=== PATIENT | male | born 1955 | race Caucasian/White ===

== ENCOUNTER 2021-05-19 12:04 | Emergency (ER) | payer OTHER ==
--- NOTE | 2021-05-19 13:02 | RAD REPORT ---
EXAM DESCRIPTION: RAD - Chest Single View - 05/19/2021 12:56 pm CLINICAL HISTORY: Dizziness COMPARISON: No comparisons FINDINGS: Lines: None. Lungs: No evidence of edema or pneumonia. Pleural: No significant pleural effusions or pneumothorax. Cardiac: The heart size is within normal limits. Bones: No acute fractures. Remote right-sided rib fractures. Other: IMPRESSION: No acute cardiopulmonary disease.
[2021-05-19 13:18] LABS: Absolute Lymphocytes (CBC) 1.7 K/uL (0.7-4.9); Basophils % 0.8 % (0-1.3); Hematocrit 40.3 % (39.6-49.0); Lymphocytes % 36.5 % (15.3-44.8); MPV 8.4 fL (7.6-11.3); RBC Red Blood Cell Count 4.45 M/uL (4.33-5.43)
[2021-05-19 13:20] LABS: Protime INR 1.07
[2021-05-19 13:43] LABS: ALT/SGPT 43 U/L (12-78); AST/SGOT 24 U/L (15-37); Albumin 3.8 g/dL (3.4-5.0); Alkaline Phosphatase 98 U/L (45-117); BUN Blood Urea Nitrogen 23 mg/dL (7-18); Bicarbonate 29 mmol/L (21-32); Bilirubin Direct 0.2 mg/dL (0-0.2); Glucose Level 96 mg/dL (74-106); Magnesium 2.2 mg/dL (1.8-2.4); NT PRO-BNP 94 pg/mL (<125); Sodium Level 138 mmol/L (136-145); Troponin (Emerg Dept Use Only) < 0.02 ng/mL (0.0-0.045)
[2021-05-19] MEDS ORDERED: MECLIZINE HCL 12.5 MG TAB ONE (15:30)
--- NOTE | 2021-05-19 16:52 | RAD REPORT ---
EXAM DESCRIPTION: MRI - Brain W/Wo Cont - 05/19/2021 4:41 pm CLINICAL HISTORY: DIZZINESS COMPARISON: No comparisons TECHNIQUE: Sagittal T1-weighted images were obtained along with PD/heavily T2-weighted and T2-FLAIR images. Axial DWI and ADC mapping sequences were also obtained along with coronal heavily T2-weighted images were obtained. Contrast was administered. FINDINGS: No intracranial hemorrhage, mass or acute infarction. There is no edema or shift of midlin e structures. No extra-axial fluid collections. Signal voids are seen as a normal finding in the lennox r intracranial vessels. Mild chronic small vessel ischemic changes. Minimal circumferential thickening within several ethmoid air cells. IMPRESSION: No acute intracranial abnormality. No abnormal enhancement. Mild chronic small vessel is chemic changes.
--- NOTE | 2021-05-19 17:10 | EDPHYS ---
Physician Documentation [facility] Name: Emre Mario Age: 66 yrs Sex: Male : 1955 Arrival Date: 05/19/2021 Time: 12:09 Bed 16 Private MD: ED Physician Ramakrishna Morales HPI: 05/19 18:22 This 66 yrs old Male presents to ER via Ambulatory with complaints of Dizziness. kdr 18:22 The patient presents with dizziness, lightheadedness, feeling off balance, vertigo. kdr Onset: The symptoms/episode began/occurred gradually, 3 day(s) ago. Context: occurred at home, occurred while the patient was at rest. Modifying factors: The symptoms are alleviated by nothing, the symptoms are aggravated by nothing. Associated signs and symptoms: Pertinent positives: nausea, Pertinent negatives: abdominal pain, agitation, ataxia, blurred vision, chest pain, combativeness, confusion, diaphoresis, focal weakness, head injury, headache, nausea, near-syncope, numbness, palpitations. Severity of symptoms: At their worst the symptoms were mild in the emergency department the symptoms are unchanged have improved mildly. Patient's baseline: Neuro: alert and fully oriented, Motor: no deficits, Ambulation: walks without assistance, Speech: normal, The patient has a previous history of vertigo. The patient has experienced similar episodes in the past, multiple times, chronically. The patient has not recently seen a physician. Historical: - Allergies: 12:40 No Known Allergies; tw2 - Home Meds: 12:40 hydrochlorothiazide 25 mg Oral tab 1 tab once daily [Active]; lisinopril 10 mg Oral tab tw2 1 tab once daily [Active]; Allopurinol Oral [Active]; atorvastatin 40 mg oral tab 1 tab once daily [Active]; Protonix 40 mg Oral grps 1 packet every other day [Active]; - PMHx: 12:40 Hypertensive disorder; Hypercholesterolemia; Gout; tw2 - Immunization history:: Adult Immunizations. - Social history:: Smoking status: . ROS: 18:22 Constitutional: Negative for fever, chills, and weight loss, Eyes: Negative for injury, kdr pain, redness, and discharge, ENT: Negative for injury, pain, and discharge, Neck: Negative for injury, pain, and swelling, Cardiovascular: Negative for chest pain, palpitations, and edema, Respiratory: Negative for shortness of breath, cough, wheezing, and pleuritic chest pain, Abdomen/GI: Negative for abdominal pain, nausea, vomiting, diarrhea, and constipation, Back: Negative for injury and pain, : Negative for injury, bleeding, discharge, and swelling, MS/Extremity: Negative for injury and deformity, Skin: Negative for injury, rash, and discoloration, Psych: Negative for depression, anxiety, suicide ideation, homicidal ideation, and hallucinations, Allergy/Immunology: Negative for hives, rash, and allergies, Endocrine: Negative for neck swelling, polydipsia, polyuria, polyphagia, and marked weight changes, Hematologic/Lymphatic: Negative for swollen nodes, abnormal bleeding, and unusual bruising. 18:22 Neuro: Positive for dizziness, weakness, Negative for altered mental status, gait disturbance, headache, hearing loss, loss of consciousness, numbness, seizure activity, speech changes, tremor, visual changes. Exam: 18:20 Constitutional: This is a well developed, well nourished patient who is awake, alert, kdr and in no acute distress. Head/Face: Normocephalic, atraumatic. Eyes: Pupils equal round and reactive to light, extra-ocular motions intact. Lids and lashes normal. Conjunctiva and sclera are non-icteric and not injected. Cornea within normal limits. Periorbital areas with no swelling, redness, or edema. Neck: Trachea midline, no thyromegaly or masses palpated, and no cervical lymphadenopathy. Supple, full range of motion without nuchal rigidity, or vertebral point tenderness. No Meningismus. Chest/axilla: Normal chest wall appearance and motion. Nontender with no deformity. No lesions are appreciated. Cardiovascular: Regular rate and rhythm with a normal S1 and S2. No gallops, murmurs, or rubs. Normal PMI, no JVD. No pulse deficits. Respiratory: Lungs have equal breath sounds bilaterally, clear to auscultation and percussion. No rales, rhonchi or wheezes noted. No increased work of breathing, no retractions or nasal flaring. Abdomen/GI: Soft, non-tender, with normal bowel sounds. No distension or tympany. No guarding or rebound. No evidence of tenderness throughout. Back: No spinal tenderness. No costovertebral tenderness. Full range of motion. Skin: Warm, dry with normal turgor. Normal color with no rashes, no lesions, and no evidence of cellulitis. MS/ Extremity: Pulses equal, no cyanosis. Neurovascular intact. Full, normal range of motion. Psych: Awake, alert, with orientation to person, place and time. Behavior, mood, and affect are within normal limits. 18:20 Neuro: Orientation: is normal, Mentation: is normal, Memory: is normal, Cranial nerves: no acute changes, Cerebellar function: is grossly normal based on the patient's age, Motor: moves all fours, Sensation: no obvious gross deficits, Gait: is steady. 18:47 ECG was reviewed by the Attending Physician. kdr Vital Signs: 12:37 BP 167 / 97; Pulse 47; Resp 17; Temp 97.8(TE); Pulse Ox 97% on R/A; Weight 99.79 kg tw2 (R); Height 5 ft. 11 in. (180.34 cm); Pain 0/10; 13:55 BP 161 / 95; Pulse 46; Resp 17; Pulse Ox 98% on R/A; tw2 14:11 BP 177 / 98; Pulse 42; Resp 18; Pulse Ox 99% on R/A; ld1 15:35 BP 179 / 99; Pulse 48; Resp 17; Pulse Ox 97% on R/A; ld1 17:34 BP 157 / 97; Pulse 47; Resp 19; Pulse Ox 100% on R/A; ld1 12:37 Body Mass Index 30.68 (99.79 kg, 180.34 cm) tw2 MDM: 17:09 Patient medically screened. kdr 18:20 Data reviewed: vital signs, nurses notes, lab test result(s), radiologic studies. kdr Counseling: I had a detailed discussion with the patient and/or guardian regarding: the historical points, exam findings, and any diagnostic results supporting the discharge/admit diagnosis, lab results, radiology results, the need for outpatient follow up. ED course: Patient remained stable in the ED. He occasionally had episodes of dizziness but they were self-limiting. Often associated with change in position but he could freely move his head around without precipitating worsening dizziness. Regarding his low heart rate, the patient states that since he was young he has had a very low heart rate in the 40s and 50s. So to him the heart rate in the low 40s without unusual or concerning. His blood pressure on the other hand has been more well controlled that it is now. He indicated that he had been on lisinopril 20 mg daily until a year or more ago. Since then he has been off of his lisinopril until just recently when he started back at 10 mg/day (he had been on 20 mg a day).. 05/19 12:38 Order name: Basic Metabolic Panel kdr 05/19 12:38 Order name: CBC with Diff kdr 05/19 12:38 Order name: LFT's kdr 05/19 12:38 Order name: Magnesium; Complete Time: 14:45 kdr 05/19 12:38 Order name: NT PRO-BNP; Complete Time: 14:45 kdr 05/19 12:38 Order name: PT-INR; Complete Time: 14:45 kdr 05/19 12:38 Order name: Troponin (emerg Dept Use Only); Complete Time: 14:45 kdr 05/19 12:38 Order name: XRAY Chest (1 view); Complete Time: 14:45 kdr 05/19 12:39 Order name: Basic Metabolic Panel; Complete Time: 14:45 EDMS 05/19 12:39 Order name: CBC with Automated Diff; Complete Time: 14:45 EDMS 05/19 12:39 Order name: Liver (Hepatic) Function; Complete Time: 14:45 EDMS 05/19 15:02 Order name: MRI - Brain W/Wo Cont; Complete Time: 17:08 kdr 05/19 12:38 Order name: EKG; Complete Time: 12:39 kdr 05/19 12:38 Order name: Cardiac monitoring; Complete Time: 13:06 kdr 05/19 12:38 Order name: EKG - Nurse/Tech; Complete Time: 14:07 kdr 05/19 12:38 Order name: IV Saline Lock; Complete Time: 13:06 kdr 05/19 12:38 Order name: Labs collected and sent; Complete Time: 13:06 kdr 05/19 12:38 Order name: O2 Per Protocol; Complete Time: 13:00 kdr 05/19 12:38 Order name: O2 Sat Monitoring; Complete Time: 13:00 kdr EC:47 Rate is 46 beats/min. Rhythm is regular, Sinus bradycardia with No ectopy. QRS [place] is kdr Normal. MO interval is normal. QRS interval is normal. QT interval is normal. Clinical impression: Sinus bradycardia. Administered Medications: 15:35 Drug: Antivert (meclizine) 25 mg Route: PO; ld1 17:45 Follow up: Response: No adverse reaction ld1 17:28 Drug: hydrALAZINE 10 mg Route: IVP; Site: left antecubital; ld1 17:45 Follow up: Response: No adverse reaction ld1 Disposition Summary: 05/19/21 17:09 Discharge Ordered Location: Home kdr Problem: new kdr Symptoms: have improved kdr Condition: Stable kdr Diagnosis - Dizziness and giddiness kdr Followup: kdr - With: Private Physician - When: 2 - 3 days - Reason: If symptoms return, Further diagnostic work-up, Recheck today's complaints, Continuance of care, Re-evaluation by your physician Discharge Instructions: - Discharge Summary Sheet kdr - Vertigo, Educ-iw-Dusp kdr - Dizziness, [id number] kdr Forms: - Medication Reconciliation Form kdr - Thank You Letter kdr Prescriptions: - Meclizine 25 mg Oral Tablet - take 1 tablet by ORAL route every 8 hours As needed; 30 tablet; Refills: 0, kdr Product Selection Permitted - Lisinopril 20 mg Oral Tablet - take 1 tablet by ORAL route once daily; 20 tablet; Refills: 0, Product kdr Selection Permitted Signatures: Dispatcher [employer] Ramakrishna Zuleta MD MD kdr Cornelius Saleem PA PA jr8 Maryellen Carlisle RN RN tw2 Colette Mares RN RN ld1
--- NOTE | 2021-05-19 17:10 | ER ---
Nurse's Notes [facility] Name: Emre Mario Age: 66 yrs Sex: Male : 1955 Arrival Date: 05/19/2021 Time: 12:09 Bed 16 Private MD: Diagnosis: Dizziness and giddiness Presentation: 05/19 12:37 Chief complaint: Patient states: 4 days started with dizzy spells and it is not getting tw2 any better. this happened before and Dr. Agudelo ordered scans and everything was negative. i was given an antibiotic for some skin cancer spots i was having removed and it cleared up the dizziness. i feel congested in my sinuses. i have clear drainage when i get up and once i cough it up the dizziness is better. also sometimes there is clear drainage from my LEFT ear. Coronavirus screen: At this time, the client does not indicate any symptoms associated with coronavirus-19. Ebola Screen: Patient denies travel to an Ebola-affected area in the 21 days before illness onset. Initial Sepsis Screen: Does the patient meet any 2 criteria? No. Patient's initial sepsis screen is negative. Does the patient have a suspected source of infection? No. Patient's initial sepsis screen is negative. Risk Assessment: Do you want to hurt yourself or someone else? Patient reports no desire to harm self or others. Onset of symptoms was May 19, 2021. 12:37 Method Of Arrival: Ambulatory tw2 12:37 Acuity: DARLEEN 3 tw2 Triage Assessment: 12:37 General: Appears in no apparent distress. well groomed, Behavior is calm, cooperative, tw2 appropriate for age. Pain: Denies pain. EENT: Reports nasal congestion nasal discharge. Neuro: Level of Consciousness is awake, alert, obeys commands, Oriented to person, place, time, situation, Reports dizziness. Cardiovascular: Denies chest pain, shortness of breath, Patient's skin is warm and dry. Respiratory: Airway is patent Respiratory effort is even, unlabored, Respiratory pattern is regular, symmetrical. GI: No signs and/or symptoms were reported involving the gastrointestinal system. Musculoskeletal: Range of motion: intact in all extremities. Historical: - Allergies: 12:40 No Known Allergies; tw2 - Home Meds: 12:40 hydrochlorothiazide 25 mg Oral tab 1 tab once daily [Active]; lisinopril 10 mg Oral tab tw2 1 tab once daily [Active]; Allopurinol Oral [Active]; atorvastatin 40 mg oral tab 1 tab once daily [Active]; Protonix 40 mg Oral grps 1 packet every other day [Active]; - PMHx: 12:40 Hypertensive disorder; Hypercholesterolemia; Gout; tw2 - Immunization history:: Adult Immunizations. - Social history:: Smoking status: . Screenin:55 Abuse screen: Denies threats or abuse. Nutritional screening: No deficits noted. tw2 Tuberculosis screening: No symptoms or risk factors identified. Fall Risk None identified. Assessment: 12:43 Reassessment: see triage assessment. tw2 14:11 Reassessment: Patient appears in no apparent distress at this time. No changes from ld1 previously documented assessment. Patient and/or family updated on plan of care and expected duration. Pain level reassessed. 17:01 Reassessment: Patient appears in no apparent distress at this time. Patient and/or ld1 family updated on plan of care and expected duration. Pain level reassessed. Patient is alert, oriented x 3, equal unlabored respirations, skin warm/dry/pink. Vital Signs: 12:37 BP 167 / 97; Pulse 47; Resp 17; Temp 97.8(TE); Pulse Ox 97% on R/A; Weight 99.79 kg tw2 (R); Height 5 ft. 11 in. (180.34 cm); Pain 0/10; 13:55 BP 161 / 95; Pulse 46; Resp 17; Pulse Ox 98% on R/A; tw2 14:11 BP 177 / 98; Pulse 42; Resp 18; Pulse Ox 99% on R/A; ld1 15:35 BP 179 / 99; Pulse 48; Resp 17; Pulse Ox 97% on R/A; ld1 17:34 BP 157 / 97; Pulse 47; Resp 19; Pulse Ox 100% on R/A; ld1 12:37 Body Mass Index 30.68 (99.79 kg, 180.34 cm) tw2 ED Course: 12:09 Patient arrived in ED. mr 12:26 Bed in low position. Call light in reach. manager monitoring on. Pulse ox on. NIBP on. tw2 12:27 Ramakrishna Morales MD is Attending Physician. kdr 12:28 Carlisle, Maryellen, RN is Primary Nurse. tw2 12:40 Triage completed. tw2 12:42 Arm band placed on. tw2 12:56 XRAY Chest (1 view) In Process Unspecified. EDMS 13:06 Liver (Hepatic) Function Sent. jh5 13:06 Basic Metabolic Panel Sent. jh5 13:06 CBC with Automated Diff Sent. jh5 13:08 Inserted saline lock: 20 gauge. jh5 14:07 Placed in gown. Side rails up X2. Adult w/ patient. Warm blanket given. manager monitoring mh5 on. Pulse ox on. NIBP on. 14:07 EKG done, by ED staff, reviewed by Ramakrishna Morales MD. 5 14:08 Basic Metabolic Panel Sent. 5 14:08 CBC with Diff Sent. 5 14:08 LFT's Sent. 5 16:37 MRI - Brain W/Wo Cont In Process Unspecified. EDMS 18:17 No provider procedures requiring assistance completed. IV discontinued, intact, ld1 bleeding controlled, No redness/swelling at site. Administered Medications: 15:35 Drug: Antivert (meclizine) 25 mg Route: PO; ld1 17:45 Follow up: Response: No adverse reaction ld1 17:28 Drug: hydrALAZINE 10 mg Route: IVP; Site: left antecubital; ld1 17:45 Follow up: Response: No adverse reaction ld1 Outcome: 17:09 Discharge ordered by . kdr 18:17 Discharged to home ambulatory. ld1 18:17 Condition: stable 18:17 Discharge instructions given to patient, family, Instructed on discharge instructions, follow up and referral plans. medication usage, Demonstrated understanding of instructions, follow-up care, medications, Prescriptions given X 2. 18:18 Patient left the ED. ld1 Signatures: Dispatcher [employer] EDPR Ramakrishna Morales MD MD kdr Rivera, Minal Maryellen Carlisle RN RN 2 Jelena Shields [facility] Colette Mares RN RN ld1 Katie Huitron, SIRISHA RN 5
[2021-05-19] MEDS ORDERED: HYDRALAZINE HCL 20 MG/ML VIAL ONE (17:19)
[2021-05-19 18:35] VITALS: TEMP 97.8
[2021-05-19 18:40] VITALS: BP 157/97; O2SAT 100
== END 2021-05-19 18:18 | disposition home or self-care (01) ==
LOC: ER 12:04
DX: R42 Dizziness and giddiness (principal); I10 Essential (primary) hypertension; E78.00 Pure hypercholesterolemia, unspecified
CPT/HCPCS: 93005; 85025; 80048; 36415; 83735; 85610; 80076; 84484; 83880; 71045; 70553; 96374; 99285; A9577; J0360; J8597